=== PATIENT | male | born 1945 | race Caucasian/White ===

== ENCOUNTER 2019-06-23 08:59 | Day surgery (SDC) | payer MEDICARE, OTHER ==
[2019-06-19 16:48] VITALS: BMI 30.2
[2019-06-23 09:53] LABS: #Basophils 0.1 thou/uL (0.0-0.2); #Eosinphils 0.4 thou/uL (0.0-0.7); #Monocytes 1.1 thou/uL (0.11-0.59); #Neutrophils 7.1 thou/uL (1.40-6.50); %Basophils 0.7 % (0.0-1.0); %Eosinophils 3.7 % (0.0-10.0); %Monocytes 10.4 % (0.0-10.0); %Neutrophils 66.3 % (42.0-75.0); Hemoglobin 13.9 g/dL (14.0-18.0); Mean Corpuscular HGB CONC 32.8 g/dL (32.0-36.0); Mean Corpuscular Hemoglobin 30.6 pg (27.0-31.0); Mean Corpuscular Volume 93.1 fL (78.0-98.0); Mean Platelet Volume 7.3 fL (7.4-10.4); Platelet Count 318 thou/uL (130-400); RBC Distribution Width 12.1 % (11.5-14.5); Red Blood Cell (RBC) Count 4.54 mill/uL (4.70-6.10); White Blood Cell (WBC) Count 10.7 thou/uL (4.8-10.8)
[2019-06-23] MEDS ORDERED: Levofloxacin 500 mg/D5W 100 ml Premix Bag ONE (10:10)
[2019-06-23 10:16] LABS: ALT (SGPT) 12 U/L (8-55); AST (SGOT) 14 U/L (5-34); Albumin 4.1 g/dL (3.4-4.8); Alkaline Phosphatase 88 U/L (40-110); Anion Gap 9 mmol/L (10-20); BUN (Urea Nitrogen) 26 mg/dL (8.4-25.7); Bilirubin, Total 0.9 mg/dL (0.2-1.2); Calc. Creatinine Clearance 45 mL/min (70-130); Calcium 9.9 mg/dL (7.8-10.44); Carbon Dioxide 28 mmol/L (23-31); Chloride 106 mmol/L (98-107); Estimated GFR-MDRD 33; Glucose 147 mg/dL (83-110); Potassium 4.3 mmol/L (3.5-5.1); Protein, Total 7.1 g/dL (5.8-8.1); Sodium 139 mmol/L (136-145)
[2019-06-23] MEDS ORDERED: Bupivacaine HCl 0.5%/Epinephrine 1:200,000/PF 30 ml Vial ONE (10:32)
[2019-06-23] MEDS ORDERED: Fentanyl 100 MCG/2 ML VIAL ONE (10:43)
[2019-06-23] MEDS ORDERED: PROPOFOL 200 MG/20 ML VIAL ONE (11:40)
[2019-06-23] MEDS ORDERED: Ondansetron PF 4 MG/2 ML Vial ONE (11:40)
[2019-06-23] MEDS ORDERED: Dexamethasone 20 MG/5 ML VIAL ONE (11:40)
[2019-06-23] MEDS ORDERED: Succinylcholine Chloride 20 MG/ML 10 ml SYRINGE FS ONE (11:40)
[2019-06-23] MEDS ORDERED: Lidocaine 1% PF 5 ML VIAL ONE (11:40)
--- NOTE | 2019-06-23 14:03 | OP ---
DATE OF PROCEDURE: 06/23/2019 PREOPERATIVE DIAGNOSIS: Umbilical hernia. PROCEDURE PERFORMED: Incarcerated umbilical hernia repair with mesh. INDICATIONS: This is a 74-year-old male, who has had a painful enlarging umbilical hernia that seems to be getting worse. FINDINGS: It was incarcerated. There was quite a bit of inflammation as well as some kind of serosanguineous fluid within the sac. There was some incarcerated fat and a small knuckle of small bowel. This was able to be released and was all viable. The defect was 1.5 cm. DESCRIPTION OF PROCEDURE: After informed consent was obtained, the patient was taken to the operating room, given general endotracheal anesthesia and placed in supine position. Abdomen was prepped and draped in usual fashion. Local anesthesia infiltrated subcutaneously and deep and a subumbilical incision was performed. Subcutaneous divided sharply. The hernia sac was encountered, this was dissected from overlying umbilical skin and circumferentially. It had a serosanguineous fluid in it and it was quite a bit inflamed. The hernia sac was opened releasing the fluid and there was some ischemic omentum and a tiny piece of small bowel. I released the fascia so that I could reduce this. Everything was viable. I then removed the hernia sac. Then, a 6.4 cm PROCEED mesh was hydrated, rolled, and inserted intra-abdominally and then unrolled. The tabs were sutured to the abdominal wall with interrupted 0 Ethibond suture and the mesh further secured superior and inferior with 0 Ethibond suture. Hemostasis achieved with electrocautery. The skin was reapproximated to the fascia with interrupted 3-0 Vicryl to restore umbilical contour and the skin closed with interrupted 4-0 Rapide. Steri-Strips applied, sterile bandage applied. The patient tolerated the procedure well and transferred to Recovery in good condition. Sponge and needle count verified correct x2. Job ID: [id number]
--- NOTE | 2019-06-26 11:31 | EKG ---
Test Reason : PREOP Blood Pressure : / mmHG Vent. Rate : 054 BPM Atrial Rate : 054 BPM P-R Int : 176 ms QRS Dur : 096 ms QT Int : 394 ms P-R-T Axes : 021 016 028 degrees QTc Int : 373 ms Sinus bradycardia Otherwise normal ECG Confirmed by KASSI MARRUFO ([id number]) on 06/26/2019 11:30:45 AM Referred By: IMELDA Confirmed By:KASSI MARRUFO
== END 2019-06-23 13:34 | disposition home or self-care (01) ==
LOC: SDC 08:59
PROVIDERS: ATTEND Surgery
PROC: 0WUF0JZ Supplement Abdominal Wall with Synthetic Substitute, Open Approach (ICD-10-PCS; principal; 2019-06-23)
DX: K42.0 Umbilical hernia with obstruction, without gangrene (principal); Z79.4 Long term (current) use of insulin; Z79.82 Long term (current) use of aspirin; Z79.899 Other long term (current) drug therapy; Z88.0 Allergy status to penicillin
CPT/HCPCS: 36415; 36416; 80053; 85025; 93005; 93010; J0670; J1956; J3010

== ENCOUNTER 2020-10-09 11:00 | Inpatient (IN) | payer MEDICARE, OTHER ==
[2020-10-10 16:09] VITALS: BMI 32.4
[2020-10-14] MEDS ORDERED: Midazolam HCl 2 mg/2 ml Vial ONE (05:46)
[2020-10-14] MEDS ORDERED: Fentanyl 100 MCG/2 ML VIAL ONE ×3 (05:46→10:13)
[2020-10-14] MEDS ORDERED: Phenylephrine 10 MG/ML VIAL ONE (05:47)
[2020-10-14] MEDS ORDERED: Ropivacaine 0.2% HCl/PF 20 ML ONE (05:47)
[2020-10-14] MEDS ORDERED: Lidocaine 2% Jelly 5 ML TUBE ONE (06:03)
[2020-10-14] MEDS ORDERED: Tranexamic Acid 1,000 MG/10 ML VIAL ONE (06:29)
[2020-10-14] MEDS ORDERED: Vancomycin 1.5 GRAM/300 ML BAG ONE (06:29)
[2020-10-14] MEDS ORDERED: Levofloxacin 500 mg/D5W 100 ml Premix Bag ONE (06:30)
[2020-10-14] MEDS ORDERED: Sodium Chloride 0.9% 100 ML ONE (06:30)
[2020-10-14] MEDS ORDERED: Zolpidem Tartrate 5 MG TAB PO PRN ×2 (07:09→08:00)
[2020-10-14] MEDS ORDERED: Acetaminophen 325 MG TAB PO PRN (07:09)
[2020-10-14] MEDS ORDERED: diphenhydrAMINE 25 MG CAP PO PRN (07:09)
[2020-10-14] MEDS ORDERED: HYDROcodone/Acetaminophen 10/325 mg Tablet PO PRN (07:09)
[2020-10-14] MEDS ORDERED: Ondansetron PF 4 MG/2 ML Vial IVP PRN ×2 (07:09→08:00)
[2020-10-14] MEDS ORDERED: Promethazine HCl 25 MG/ML VIAL IM PRN ×4 (07:09→09:06)
[2020-10-14] MEDS ORDERED: Fentanyl 100 MCG/2 ML VIAL SLOW IVP PRN ×2 (07:09)
[2020-10-14] MEDS ORDERED: traMADol HCl 50 MG TAB PO PRN ×3 (07:09→08:00)
[2020-10-14] MEDS ORDERED: Non-Formulary Item 1 EACH (Insulin Aspart Prot/Insuln Asp [Novolog Mix 70-30 Flexpen Syrn SQ SCH (07:15)
[2020-10-14] MEDS ORDERED: HumuLIN 70/30 (300 UNITS/3 ML VIAL) SC SCH (07:30)
[2020-10-14] MEDS ORDERED: Acetaminophen 500 MG TAB PO PRN (07:54)
[2020-10-14] MEDS ORDERED: Bupivacaine 0.25% 10 ML VIAL EPIDURAL PRN (08:00)
[2020-10-14] MEDS ORDERED: Ketorolac Tromethamine 30 MG/ML VIAL IVP PRN (08:00)
[2020-10-14] MEDS ORDERED: diphenhydrAMINE 50 MG/ML VIAL IM PRN (08:00)
[2020-10-14] MEDS ORDERED: diphenhydrAMINE 50 MG/ML VIAL IVP PRN (08:00)
[2020-10-14] MEDS ORDERED: HYDROcodone/Acetaminophen 5/325 mg Tablet PO PRN ×2 (08:00)
[2020-10-14] MEDS ORDERED: Hydrocerin (Eucerin) Cream 120 gm Jar TOP PRN (08:00)
[2020-10-14] MEDS ORDERED: Naloxone HCl 0.4 mg/ml Vial IV PRN (08:00)
[2020-10-14] MEDS ORDERED: Promethazine HCl 25 MG SUPP PR PRN (08:00)
[2020-10-14] MEDS ORDERED: Naloxone HCl 0.4 mg/ml Vial IVP PRN (08:00)
[2020-10-14] MEDS ORDERED: INSULIN DEGLUDEC SQ SCH (09:00)
[2020-10-14] MEDS ORDERED: [UNRECOGNIZED DRUG - OTHER] SQ SCH (09:00)
[2020-10-14] MEDS ORDERED: Aspirin 325 MG TAB PO SCH (09:00)
[2020-10-14] MEDS ORDERED: Aspirin 81 mg Enteric Coated Tablet PO SCH (09:00)
[2020-10-14] MEDS ORDERED: Insulin Glargine 80 UNITS in Pre-Filled Syringe 1 EACH SC SCH ×2 (09:00→15:30)
[2020-10-14] MEDS ORDERED: Alogliptin 25 MG TAB PO SCH (09:00)
[2020-10-14] MEDS ORDERED: Ondansetron HCl/PF 4 MG/2 ML Vial IVP PRN ×2 (09:06)
[2020-10-14] MEDS ORDERED: Promethazine HCl 25 MG/ML VIAL SLOW IVP PRN ×2 (09:06)
[2020-10-14] MEDS ORDERED: Bupivacaine 0.5% 10 ML VIAL ONE (09:29)
--- NOTE | 2020-10-14 09:36 | OP ---
DATE OF PROCEDURE: 10/14/2020 TITLE OF PROCEDURE: Right total hip arthroplasty using Pingree Accolade II stem size 6 with -2.5, 36 ceramic head Trident II cup with a 54 size with X3 36, 10-degree hooded liner. C SOFTWARE ENGINEER: Aziza. BLOOD LOSS: 200. SPECIMENS: None. DRAINS: None. COMPLICATIONS: None. The gift shop assistant/co-surgeon was present through the entire procedure and was responsible for providing exposure, tissue retraction and any necessary limb or tissue manipulation required to obtain necessary reduction or hardware placement. The gift shop assistant/co-surgeon also provided bleeding control, tissue closure, and suturing in conjunction with the primary surgeon. DESCRIPTION OF PROCEDURE: After informed consent was obtained in the preoperative holding area, the patient was taken to the operative suite where general anesthesia was induced. The patient was then positioned in the lateral decubitus position. The hip was then prepped and draped in usual sterile fashion. The patient received preoperative antibiotics. Prior to incision, time-out was called and all members of the surgical team agreed upon site, surgeon, and patient. After this, a longitudinal incision was made directly over the trochanter, noted by palpation extending 2 fingerbreadths above and below the trochanter. The deeper subcutaneous layer was undermined with Bovie electrocautery. The iliotibial band was encountered and incised sharply and the plane below this was developed bluntly. A Charnley retractor was placed to hold this opened. The lateral aspect of the trochanter and the abductor muscles were encountered and then reflected anteriorly off the trochanter using Bovie electrocautery. Once this was completed, the anterior capsule was then encountered and identified and copious capsulotomy was carried out, exposing the femoral neck and head. Dislocation maneuver was then performed and an in situ provisional neck cut was then made using the oscillating saw. Attention was then turned to acetabular preparation and sequential reaming was carried out up to the appropriate diameter. A trial was then malleted into place with good firm resistance and no pullout. The permanent acetabular shell was then malleted squarely into place, as was the appropriate liner. Once completed, the wound was copiously irrigated and attention was then turned to femoral preparation. Flexion and external rotation were performed of the exposed thigh and femoral elevators were then placed at the proximal aspect of the wound. Canal finder was used to establish the length of the canal and sequential reaming was carried out, followed by broaching. Once the appropriate stability was established with the trial broaches with flexion, extension and rotational stability, we did trial with neutral and 2 mm offset incremental necks. Once the appropriate size was decided upon, with good stability noted with flexion, extension, internal and external rotation and shuck being negative, we removed the femoral trial broach and malletted into place the permanent prosthesis with good firm fit, which was also stable to rotation. Again, the hip felt very stable to flexion, extension, internal and external rotation. Leg lengths appeared near anatomic clinically and we were quite happy with prosthesis placement. Copious irrigation was then carried out through the entirety of the wound. Primary closure of the abductors was accomplished with interrupted #2 Vicryl [id number] stitches and the IT band was then closed with interrupted #2 Vicryl, oversewn with a #2 running barbed Quill stitch. Subcutaneous fascia was closed with running barbed Quill stitch and a subcuticular Monocryl barbed Quill stitch was used for skin closure and augmented with skin cement. A sterile dressing was applied. The procedure was terminated without any complication. All counts were correct. The patient was awakened in the operative suite and taken to the recovery room in stable condition. Job ID: [id number]
--- NOTE | 2020-10-14 09:52 | RAD ---
EXAM: 2 views of the right hip HISTORY: Right hip arthroplasty COMPARISON: 02/21/2020 FINDINGS: 2 views of the right hip shows the patient is status post right hip arthroplasty without pe rihardware lucency or fracture. Air in the soft tissues is from recent surgery. IMPRESSION: Status post right hip arthroplasty without evidence of complication.
[2020-10-14] MEDS ORDERED: Dexamethasone 20 MG/5 ML VIAL ONE (10:38)
[2020-10-14] MEDS ORDERED: PROPOFOL 200 MG/20 ML VIAL ONE (10:38)
[2020-10-14] MEDS ORDERED: Ondansetron PF 4 MG/2 ML Vial ONE (10:38)
[2020-10-14] MEDS ORDERED: Rocuronium Bromide 10 MG/ML (10ML VIAL) ONE (10:38)
[2020-10-14] MEDS ORDERED: Glycopyrrolate 0.2 MG/ML 5 ML SYRINGE ONE (10:38)
[2020-10-14] MEDS ORDERED: Lidocaine 1.5% w/Epi 1:200K 30 ML VIAL (Epid Use) ONE (10:38)
[2020-10-14] MEDS ORDERED: Dextrose 50% Abboject 50 ML SYRINGE SLOW IVP PRN (13:33)
[2020-10-14] MEDS ORDERED: Insulin Regular 300 UNITS/3 ML VIAL SC PRN ×2 (13:33)
[2020-10-14] MEDS ORDERED: Dextrose 5% in Water 1,000 ML IV PRN (13:33)
[2020-10-14] MEDS: Ferrous Gluconate 324 MG TAB PO SCH ×2 (13:35→21:07)
[2020-10-14] MEDS: Sodium Chloride 0.9% 1,000 ML IV SCH ×2 (13:35→19:00)
[2020-10-14] MEDS: Senokot S 8.6-50 MG TAB PO SCH ×2 (13:36→21:08)
[2020-10-14] MEDS: Multivitamin W/ Minerals 1 TAB PO SCH (13:36)
[2020-10-14] MEDS: Amlodipine 5 MG TAB PO SCH (15:09)
[2020-10-14] MEDS: Icosapent Ethyl 1 GM CAPSULE PO SCH ×2 (15:14→21:09)
[2020-10-14 15:18] LABS: Mean Corpuscular HGB CONC 32.6 g/dL (32.0-36.0); Mean Corpuscular Hemoglobin 30.8 pg (27.0-31.0); Mean Corpuscular Volume 94.4 fL (78.0-98.0); Mean Platelet Volume 7.1 fL (7.4-10.4); Platelet Count 322 thou/uL (130-400); RBC Distribution Width 12.3 % (11.5-14.5); Red Blood Cell (RBC) Count 3.91 mill/uL (4.70-6.10); White Blood Cell (WBC) Count 21.9 thou/uL (4.8-10.8)
[2020-10-14 15:32] LABS: Band 4 % (5-11); Lymphocytes 2 % (21-51); MDiff Complete? YES; Monocytes 1 % (0-10); Neutrophil 93 % (42-75); Ovalocytes SLIGHT = 2-5 cells (100X) (0-1/hpf); Platelet Morphology Comment Appears Adequate; Polychromasia SLIGHT = 2-3 cells (100X) (0-2/hpf)
[2020-10-14 15:49] LABS: ALT (SGPT) 17 U/L (8-55); AST (SGOT) 20 U/L (5-34); Albumin 3.4 g/dL (3.4-4.8); Alkaline Phosphatase 76 U/L (40-110); Anion Gap 14 mmol/L (10-20); BUN (Urea Nitrogen) 33 mg/dL (8.4-25.7); Bilirubin, Total 0.6 mg/dL (0.2-1.2); Calc. Creatinine Clearance 45 mL/min (70-130); Calcium 8.5 mg/dL (7.8-10.44); Carbon Dioxide 21 mmol/L (23-31); Chloride 103 mmol/L (98-107); Globulin 2.7 g/dL (2.4-3.5); Glucose 379 mg/dL (83-110); Magnesium 1.5 mg/dL (1.6-2.6); Potassium 4.9 mmol/L (3.5-5.1); Protein, Total 6.1 g/dL (5.8-8.1); Sodium 133 mmol/L (136-145)
[2020-10-14] MEDS ORDERED: Magnesium Sulfate 4 GM in Sodium Chloride 0.9% 250 ML 250 ML IVPB SCH (17:45)
[2020-10-14] MEDS ORDERED: Vancomycin HCl 1.5 GM in Sodium Chloride 0.9% 250 ML 300 ML IVPB SCH (18:00)
--- NOTE | 2020-10-14 18:37 | CON ---
DATE OF CONSULTATION: 10/14/2020 REASON FOR CONSULTATION: Medical management. PRIMARY CARE PHYSICIAN: Dr. Mason. HISTORY OF PRESENT ILLNESS: Mr. Ojeda is a 75-year-old gentleman, who is status post a right total hip arthroplasty done by Dr. Leon earlier today, who has been referred to us for medical management. The patient has a history of diabetes, hypertension, and hyperlipidemia. The patient apparently had an injury five years ago to the right hip and has had injections for chronic pain. Today, he has undergone a right total hip arthroplasty. He states the pain is under control and denies any complaints at this present time. 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 He has a Dexcom, which he checks hourly, and administers Humulin according to the readings. He states his blood pressure is usually under good control. He has no complaints at this present time. He does mention he has had occasional itching associated with epidural but has not experienced any rash, throat swelling, tongue swelling or difficulty with his breathing. Of note, the patient states that he was told he had chronic kidney disease and states he has had improvement in his renal function, but was lost to follow up. Recently had been set up to see Dr. Guajardo as an outpatient; however, due to COVID, his appointment was canceled and no further followup was established. PAST MEDICAL HISTORY: 1. Diabetes mellitus. 2. Hypertension. 3. Hyperlipidemia. 4. Obese. PAST SURGICAL HISTORY: 1. Left knee arthroscopic meniscectomy, August 2016. 2. Right knee arthroscopy in 2012. 3. Umbilical hernia repair in June 2019. 4. Total right hip arthroplasty. FAMILY HISTORY: His father is and was diagnosed with diabetes. His mother is and was diagnosed with CVA, diabetes and hypertension. SOCIAL HISTORY: The patient lives with his . Denies any alcohol consumption, tobacco use, or drug use. ALLERGIES: PENICILLIN. CURRENT MEDICATIONS: 1. Amlodipine 5 mg p.o. daily. 2. Aspirin 325 mg p.o. daily. 3. Ezetimibe/simvastatin. 4. Vascepa 2 g p.o. b.i.d. 5. NovoLog 10 units subcutaneous. 6. Tresiba 80 units subcutaneous every morning. 7. Linagliptin 5 mg p.o. daily. 8. Hyzaar 50 mg/12.5 mg, one tablet at bedtime. PHYSICAL EXAMINATION: GENERAL: The patient appears well developed, well nourished, is in no acute distress. VITAL SIGNS: Temp 98, pulse 88, respirations 18, O2 saturation 100% on room air, blood pressure 120/67. HEENT: Normocephalic and atraumatic. Pupils are equal, round, reactive to light. Sclerae without icterus. Oropharynx is clear. NECK: Supple. LUNGS: Clear to auscultation bilaterally without any wheezes, rales, or rhonchi. CARDIAC: Regular rate and rhythm. ABDOMEN: Soft, obese, nontender, nondistended. Normoactive bowel sounds present. No guarding or rigidity. No renal angle tenderness. EXTREMITIES: Mild pedal edema. Peripheral pulses strong and equal bilaterally. SKIN: Warm and dry. IMAGING DATA: A hip x-ray done on 10/14/2020 showed status post right hip arthroplasty without evidence of complication. LABORATORY STUDIES: Preop done to 10/11/2020 showed a white count of 10.5, hemoglobin of 13.8, hematocrit 42.4, platelets 372. Potassium 4.5, BUN 27, creatinine 1.96, GFR 34, glucose 112, calcium 9.7. Urinalysis done on 10/11/2020 was unremarkable. COVID testing done at that time was negative as well. IMPRESSION AND PLAN: Mr. Ojeda is a 75-year-old gentleman, who is status post a right total hip arthroplasty, who is being referred for medical management of the followin. Diabetes mellitus. We will discontinue linagliptin in light of chronic kidney disease and continue to manage with insulin only. Insulin sliding scale initiated. Continue to monitor blood glucose, Accu-Cheks a.c. and at bedtime. 2. Hypertension. Home medications have been restarted. We will hold hydrochlorothiazide in light of renal function, though we do plan to repeat renal function studies today. We will start p.r.n. antihypertensives if needed; however, blood pressure is soft in the 120s at present. 3. Chronic kidney disease. As mentioned above, we will obtain repeat laboratory studies including renal function. His creatinine with preoperative labs was elevated at 1.96. Consider Nephrology consult if renal function is worse. 4. Hyperlipidemia. Statin restarted. 5. Status post right total hip arthroplasty. Pain under control. Further management as per surgical team. 6. Gastrointestinal prophylaxis with famotidine. 7. Deep venous thrombosis prophylaxis with mechanical SCDs. 8. Code status full. Case discussed with attending who agrees with plan of care as described above. Job ID: [id number]
[2020-10-14] MEDS ORDERED: HumaLOG 300 UNITS/3 ML VIAL SC PRN ×3 (20:30→20:45)
[2020-10-14] MEDS ORDERED: SIMVASTATIN PO SCH (21:00)
[2020-10-14] MEDS ORDERED: EZETIMIBE PO SCH (21:00)
[2020-10-14] MEDS ORDERED: [UNRECOGNIZED DRUG - OTHER] PO SCH (21:00)
[2020-10-14] MEDS: Ezetimibe 10 MG TAB PO SCH (21:07)
[2020-10-14] MEDS: Aspirin 325 MG TAB PO SCH (21:07)
[2020-10-14] MEDS: Simvastatin 20 MG TAB PO SCH (21:08)
[2020-10-15] MEDS: diphenhydrAMINE 25 MG CAP PO PRN ×4 (00:18→18:57)
[2020-10-15] MEDS: Fentanyl 5 mcg/Bup 0.075% Cadd 100 ML EPIDURAL SCH ×2 (01:24→18:58)
[2020-10-15] MEDS: Sodium Chloride 0.9% 1,000 ML IV SCH ×2 (05:06→14:57)
[2020-10-15] MEDS: Vancomycin 1.5 GRAM/300 ML BAG 1.5 GM in Premix Bag 1 BAG IVPB SCH (05:51)
[2020-10-15 06:18] LABS: #Basophils 0.1 thou/uL (0.0-0.2); #Lymphocytes 1.7 thou/uL (1.20-3.40); #Monocytes 2.1 thou/uL (0.11-0.59); %Basophils 0.3 % (0.0-1.0); %Eosinophils 0.1 % (0.0-10.0); %Lymphocytes 10.1 % (21.0-51.0); %Monocytes 12.3 % (0.0-10.0); %Neutrophils 77.3 % (42.0-75.0); Hemoglobin 10.9 g/dL (14.0-18.0); Mean Corpuscular HGB CONC 33.2 g/dL (32.0-36.0); Mean Corpuscular Hemoglobin 31.1 pg (27.0-31.0); Mean Corpuscular Volume 93.6 fL (78.0-98.0); Platelet Count 274 thou/uL (130-400); RBC Distribution Width 12.2 % (11.5-14.5); Red Blood Cell (RBC) Count 3.52 mill/uL (4.70-6.10); White Blood Cell (WBC) Count 16.8 thou/uL (4.8-10.8)
[2020-10-15 06:33] LABS: Anion Gap 11 mmol/L (10-20); BUN (Urea Nitrogen) 36 mg/dL (8.4-25.7); Calc. Creatinine Clearance 48 mL/min (70-130); Calcium 8.7 mg/dL (7.8-10.44); Carbon Dioxide 22 mmol/L (23-31); Chloride 106 mmol/L (98-107); Glucose 256 mg/dL (83-110); Potassium 4.6 mmol/L (3.5-5.1); Sodium 134 mmol/L (136-145)
[2020-10-15] MEDS: Amlodipine 5 MG TAB PO SCH (08:48)
[2020-10-15] MEDS: Tamsulosin HCl 0.4 MG CAP PO SCH (08:49)
[2020-10-15] MEDS: Multivitamin W/ Minerals 1 TAB PO SCH (08:49)
[2020-10-15] MEDS: Senokot S 8.6-50 MG TAB PO SCH ×3 (08:49→20:48)
[2020-10-15] MEDS: Ferrous Gluconate 324 MG TAB PO SCH ×2 (08:49→20:49)
[2020-10-15] MEDS ORDERED: Magnesium 2 GM/50 ML 2 GM in Premix Bag 1 BAG IVPB SCH ×2 (09:00→13:45)
[2020-10-15] MEDS: Icosapent Ethyl 1 GM CAPSULE PO SCH ×2 (10:00→20:49)
[2020-10-15] MEDS: Insulin Glargine 45 UNITS in Pre-Filled Syringe 1 EACH SC SCH ×2 (10:02→20:58)
[2020-10-15] MEDS: NPH, Human Insulin Isophane 300 UNIT/3 ML VIAL SC SCH ×2 (10:47→17:57)
--- NOTE | 2020-10-15 14:25 | PDOC.HOSPP ---
- Subjective Encounter Date: 10/15/20 Encounter Time: 09:45 Subjective: Patient seen in his room. He is sitting in the chair. at bedside. He walked with physical therapy. No acute complaints. White count is trending down blood glucose still high. - Objective Vital Signs & Weight: Vital Signs (12 hours) Temp Pulse Resp BP BP Pulse Ox 10/15/20 10:33 98.2 F 103 H 14 116/61 93 L 10/15/20 08:48 81 129/66 10/15/20 07:55 97.8 F 81 16 129/66 94 L 10/15/20 03:30 97.8 F 82 18 122/73 96 Weight Weight 226 lb I&O: 10/14/20 10/15/20 10/16/20 06:59 06:59 06:59 Intake Total 1670 1280 Output Total 550 2050 Balance 1120 -770 Result Diagrams: 10/15/20 05:25 10/15/20 05:25 Additional Labs: Accuchecks 10/15/20 10/15/20 10/14/20 05:50 00:14 20:55 POC Glucose 238 H 336 H 429 H 10/14/20 10/14/20 17:36 15:48 POC Glucose 415 H 426 H Hospitalist ROS - Medication Medications: Active Medications Generic Name Dose Route Start Last Admin Trade Name Freq PRN Reason Stop Dose Admin Amlodipine Besylate 5 mg 10/14/20 09:00 10/15/20 08:48 Amlodipine 5 Mg Tab PO 5 mg QAM ANA LUISA Administration Aspirin 325 mg 10/14/20 21:00 10/14/20 21:07 Aspirin 325 Mg Tab PO 325 mg HS ANA LUISA Administration Diphenhydramine HCl 25 mg 10/14/20 08:00 10/15/20 08:40 Diphenhydramine 25 Mg Cap PO 25 mg Q3H PRN Administration Itching Ezetimibe 10 mg 10/14/20 21:00 10/14/20 21:07 Ezetimibe 10 Mg Tab PO 10 mg HS ANA LUISA Administration Ferrous Gluconate 324 mg 10/14/20 09:00 10/15/20 08:49 Ferrous Gluconate 324 Mg Tab PO 324 mg BID ANA LUISA Administration Sodium Chloride 1,000 mls @ 100 mls/hr 10/14/20 07:15 10/15/20 05:06 Normal Saline 0.9% IV Not Given .Q10H ANA LUISA Fentanyl Citrate 100 mls @ 6 mls/hr 10/14/20 08:00 10/15/20 01:24 Fentanyl/Bupivacaine EPIDURAL 100 mls INF ANA LUISA Administration As Directed Vancomycin HCl 1.5 gm/ Device 300 mls @ 200 mls/hr 10/15/20 06:00 10/15/20 05:51 IVPB 300 mls 0600 ANA LUISA Administration Insulin Glargine 45 units/ 0.45 mls @ 0 mls/hr 10/15/20 09:00 10/15/20 10:02 Miscellaneous Medication SC Not Given BID ANA LUISA Insulin Human Lispro 0 units 10/14/20 20:45 10/14/20 20:57 Humalog 300 Units/3 Ml Vial SC 13 units .AGGRESSIVE SLIDING PRN Administration AGGRESSIVE SLIDING SCALE Protocol Insulin Human NPH 7 unit 10/15/20 11:30 10/15/20 10:47 Nph, Human Insulin Isophane 300 Unit/3 Ml Vial SC Not Given AC ANA LUISA Iron/Minerals/Multivitamins 1 tab 10/14/20 09:00 10/15/20 08:49 Multivitamin W/ Minerals 1 Tab PO 1 tab DAILY ANA LUISA Administration Miscellaneous Medication 2 gm 10/14/20 09:00 10/15/20 10:00 Icosapent Ethyl 1 Gm Capsule PO 2 gm BID ANA LUISA Administration Senna/Docusate Sodium 2 tab 10/14/20 09:00 10/15/20 08:59 Senokot S 8.6-50 Mg Tab PO Not Given BID ANA LUISA Simvastatin 20 mg 10/14/20 21:00 10/14/20 21:08 Simvastatin 20 Mg Tab PO 20 mg HS ANA LUISA Administration Tamsulosin HCl 0.4 mg 10/15/20 09:00 10/15/20 08:49 Tamsulosin Hcl 0.4 Mg Cap PO 0.4 mg DAILY ANA LUISA Administration Hospitalist Exam Vitals: Vital Signs (12 hours) Temp Pulse Resp BP BP Pulse Ox 10/15/20 10:33 98.2 F 103 H 14 116/61 93 L 10/15/20 08:48 81 129/66 10/15/20 07:55 97.8 F 81 16 129/66 94 L 10/15/20 03:30 97.8 F 82 18 122/73 96 Weight Weight 226 lb General Appearance: NAD, awake alert Eye: PERRL ENT: normocephalic atraumatic Neck: supple Heart: RRR, normal peripheral pulses Respiratory: CTAB, normal chest expansion Gastrointestinal: soft, normal bowel sounds Extremities - other findings: Right total hip arthroplasty Musculoskeletal: generalized weakness Psychiatric: normal affect, normal behavior, A&O x 3 Hosp A/P - Plan Status post total hip arthroplasty Type 2 diabetes mellitus-likely uncontrolled at baseline -Follow-up on A1c on Lantus 80 units for easy titration and managing the blood glucose which is very high will split it twice a day dose and adding aggressive sliding scale in addition to scheduled premeal insulin. Blood glucose reached around 300-400 range. -Need another day or 2 to optimize his insulin management Chronic kidney disease stage III -Slowly improving Bowel regimen Ambulation with physical therapy Disposition Per Ortho
[2020-10-15] MEDS: Aspirin 325 MG TAB PO SCH (20:49)
[2020-10-15] MEDS: Ezetimibe 10 MG TAB PO SCH (20:49)
[2020-10-15] MEDS: Simvastatin 20 MG TAB PO SCH (20:49)
[2020-10-16] MEDS: Sodium Chloride 0.9% 1,000 ML IV SCH ×2 (01:17→09:31)
[2020-10-16] MEDS: NPH, Human Insulin Isophane 300 UNIT/3 ML VIAL SC SCH ×2 (06:27→10:43)
[2020-10-16 06:49] LABS: Hemoglobin A1c 7.2 % (4.0-6.0)
[2020-10-16 06:53] LABS: #Basophils 0.1 thou/uL (0.0-0.2); #Eosinphils 0.3 thou/uL (0.0-0.7); #Lymphocytes 1.6 thou/uL (1.20-3.40); #Monocytes 1.8 thou/uL (0.11-0.59); #Neutrophils 10.5 thou/uL (1.40-6.50); %Basophils 0.4 % (0.0-1.0); %Lymphocytes 11.1 % (21.0-51.0); %Monocytes 12.5 % (0.0-10.0); %Neutrophils 74.1 % (42.0-75.0); Hemoglobin 10.5 g/dL (14.0-18.0); Mean Corpuscular HGB CONC 33.3 g/dL (32.0-36.0); Mean Corpuscular Hemoglobin 31.4 pg (27.0-31.0); Mean Corpuscular Volume 94.4 fL (78.0-98.0); Mean Platelet Volume 7.2 fL (7.4-10.4); Platelet Count 252 thou/uL (130-400); RBC Distribution Width 12.2 % (11.5-14.5); Red Blood Cell (RBC) Count 3.33 mill/uL (4.70-6.10); White Blood Cell (WBC) Count 14.2 thou/uL (4.8-10.8)
[2020-10-16 07:03] LABS: Vancomycin, Trough 10.4 ug/mL
[2020-10-16 07:05] LABS: Anion Gap 10 mmol/L (10-20); BUN (Urea Nitrogen) 34 mg/dL (8.4-25.7); Calc. Creatinine Clearance 48 mL/min (70-130); Calcium 9.2 mg/dL (7.8-10.44); Carbon Dioxide 23 mmol/L (23-31); Chloride 107 mmol/L (98-107); Glucose 157 mg/dL (83-110); Potassium 4.2 mmol/L (3.5-5.1); Sodium 136 mmol/L (136-145)
[2020-10-16] MEDS: Vancomycin 1.5 GRAM/300 ML BAG 1.5 GM in Premix Bag 1 BAG IVPB SCH (07:25)
[2020-10-16] MEDS ORDERED: VANCOMYCIN 1.75 GM/350 ML BAG 1.75 GM in Premix Bag 1 BAG IVPB SCH (08:00)
[2020-10-16] MEDS: Ferrous Gluconate 324 MG TAB PO SCH (08:30)
[2020-10-16] MEDS: Amlodipine 5 MG TAB PO SCH (08:30)
[2020-10-16] MEDS: Senokot S 8.6-50 MG TAB PO SCH (08:30)
[2020-10-16] MEDS: Tamsulosin HCl 0.4 MG CAP PO SCH (08:30)
[2020-10-16] MEDS: Multivitamin W/ Minerals 1 TAB PO SCH (08:30)
[2020-10-16] MEDS: Icosapent Ethyl 1 GM CAPSULE PO SCH (08:31)
[2020-10-16] MEDS: Insulin Glargine 45 UNITS in Pre-Filled Syringe 1 EACH SC SCH (08:43)
[2020-10-16] MEDS ORDERED: HYDROcodone/Acetaminophen 10/325 mg Tablet PO PRN ×2 (09:44)
[2020-10-16] MEDS: diphenhydrAMINE 25 MG CAP PO PRN (10:41)
[2020-10-16 12:06] VITALS: BP 132/70; TEMP 99.5
--- NOTE | 2020-10-16 12:53 | PDOC.HOSPP ---
- Subjective Encounter Date: 10/16/20 Encounter Time: 10:20 Subjective: Patient is doing well he is able to participate with physical therapy. He has no complaints. His white count is trending down. He is normotensive. - Objective Vital Signs & Weight: Vital Signs (12 hours) Temp Pulse Resp BP BP Pulse Ox 10/16/20 12:05 99.5 F 111 H 14 132/70 92 L 10/16/20 08:31 97 10/16/20 08:30 93 134/67 10/16/20 08:27 99 F 93 14 134/67 97 10/16/20 04:55 98.9 F 91 16 138/74 96 Weight Weight 226 lb I&O: 10/15/20 10/16/20 10/17/20 06:59 06:59 06:59 Intake Total 1670 3620 Output Total 550 4100 200 Balance 1120 -480 -200 Result Diagrams: 10/16/20 06:08 10/16/20 06:08 Additional Labs: Accuchecks 10/15/20 20:26 POC Glucose 219 H Hospitalist ROS - Medication Medications: Active Medications Generic Name Dose Route Start Last Admin Trade Name Freq PRN Reason Stop Dose Admin Hydrocodone Bitart/Acetaminophen 1 tab 10/16/20 09:44 10/16/20 10:41 Hydrocodone/Acetaminophen 10/325 Mg Tablet PO 1 tab Q4H PRN Administration Pain 2-4 Amlodipine Besylate 5 mg 10/14/20 09:00 10/16/20 08:30 Amlodipine 5 Mg Tab PO 5 mg QAM ANA LUISA Administration Aspirin 325 mg 10/14/20 21:00 10/15/20 20:49 Aspirin 325 Mg Tab PO 325 mg HS ANA LUISA Administration Diphenhydramine HCl 25 mg 10/14/20 08:00 10/16/20 10:41 Diphenhydramine 25 Mg Cap PO 25 mg Q3H PRN Administration Itching Ezetimibe 10 mg 10/14/20 21:00 10/15/20 20:49 Ezetimibe 10 Mg Tab PO 10 mg HS ANA LUISA Administration Ferrous Gluconate 324 mg 10/14/20 09:00 10/16/20 08:30 Ferrous Gluconate 324 Mg Tab PO 324 mg BID ANA LUISA Administration Sodium Chloride 1,000 mls @ 100 mls/hr 10/14/20 07:15 10/16/20 09:31 Normal Saline 0.9% IV Not Given .Q10H ANA LUISA Insulin Glargine 45 units/ 0.45 mls @ 0 mls/hr 10/15/20 09:00 10/16/20 08:43 Miscellaneous Medication SC Not Given BID ANA LUISA Vancomycin HCl 1.75 gm/ Device 350 mls @ 175 mls/hr 10/16/20 08:00 10/16/20 08:29 IVPB 350 mls 0800 ANA LUISA Administration Insulin Human Lispro 0 units 10/14/20 20:45 10/14/20 20:57 Humalog 300 Units/3 Ml Vial SC 13 units .AGGRESSIVE SLIDING PRN Administration AGGRESSIVE SLIDING SCALE Protocol Insulin Human NPH 7 unit 10/15/20 11:30 10/16/20 10:43 Nph, Human Insulin Isophane 300 Unit/3 Ml Vial SC Not Given AC ANA LUISA Iron/Minerals/Multivitamins 1 tab 10/14/20 09:00 10/16/20 08:30 Multivitamin W/ Minerals 1 Tab PO 1 tab DAILY ANA LUISA Administration Miscellaneous Medication 2 gm 10/14/20 09:00 10/16/20 08:31 Icosapent Ethyl 1 Gm Capsule PO 2 gm BID ANA LUISA Administration Senna/Docusate Sodium 2 tab 10/14/20 09:00 10/16/20 08:30 Senokot S 8.6-50 Mg Tab PO 2 tab BID ANA LUISA Administration Simvastatin 20 mg 10/14/20 21:00 10/15/20 20:49 Simvastatin 20 Mg Tab PO 20 mg HS ANA LUISA Administration Tamsulosin HCl 0.4 mg 10/15/20 09:00 10/16/20 08:30 Tamsulosin Hcl 0.4 Mg Cap PO 0.4 mg DAILY ANA LUISA Administration Hospitalist Exam Vitals: Vital Signs (12 hours) Temp Pulse Resp BP BP Pulse Ox 10/16/20 12:05 99.5 F 111 H 14 132/70 92 L 10/16/20 08:31 97 10/16/20 08:30 93 134/67 10/16/20 08:27 99 F 93 14 134/67 97 10/16/20 04:55 98.9 F 91 16 138/74 96 Weight Weight 226 lb General Appearance: ill appearing Eye: PERRL, anicteric sclera ENT: normocephalic atraumatic Neck: supple Heart: RRR, normal peripheral pulses Respiratory: CTAB, normal chest expansion Gastrointestinal: soft, normal bowel sounds Neurological: cranial nerve grossly intact, no focal deficits Psychiatric: normal affect, normal behavior, A&O x 3 Hosp A/P - Plan Status post total hip arthroplasty Type 2 diabetes mellitus-likely uncontrolled at baseline -Follow-up on A1c on Lantus 80 units for easy titration and managing the blood glucose which is very high will split it twice a day dose and adding aggressive sliding scale in addition to scheduled premeal insulin. Blood glucose reached around 300-400 range. -Need another day or 2 to optimize his insulin management Chronic kidney disease stage III -Slowly improving Bowel regimen Ambulation with physical therapy Disposition Per Ortho Plan for discharge today.
--- NOTE | 2020-10-16 14:14 | PRG ---
DATE OF SERVICE: 10/15/2020 SUBJECTIVE: Sy is a 75-year-old male postop day 1 from a right total hip arthroplasty. He is doing relatively well. He has no complaints. OBJECTIVE: VITAL SIGNS: Temperature 97.8, pulse 81, respiratory rate 16 and unlabored, O2 saturation is 94% on room air, and blood pressure is 129/66. GENERAL: He is alert and oriented to person, place, time, and situation, responsive and appropriate with examiner. His incision is clean, closed. No erythema. There is no shortening or malrotation of the right lower extremity. He is neurovascularly intact. LABORATORY DATA: Hemoglobin and hematocrit are 10.9 and 32.9. IMPRESSION: A 75-year-old male postop day 1, right total hip arthroplasty, doing well. PLAN: Initiate physical therapy. Continue to monitor for pain control and also monitor for hemorrhage. Expected discharge, postop day 2. Job ID: [id number]
== END 2020-10-16 13:29 | disposition home or self-care (01) | DRG 470 ==
LOC: SJJU 10-14 05:31 → SURG A 10-14 12:05
PROVIDERS: ADMIT Orthopaedic Surgery; ATTEND Internal Medicine
PROC: 0SR9039 Replacement of Right Hip Joint with Ceramic Synthetic Substitute, Cemented, Open Approach (ICD-10-PCS; principal; 2020-10-14)
DX: M16.11 Unilateral primary osteoarthritis, right hip (principal); Z20.822 Contact with and (suspected) exposure to COVID-19; E78.5 Hyperlipidemia, unspecified; G89.29 Other chronic pain; E66.9 Obesity, unspecified; E11.22 Type 2 diabetes mellitus with diabetic chronic kidney disease; I12.9 Hypertensive chronic kidney disease with stage 1 through stage 4 chronic kidney disease, or unspecified chronic kidney disease; E11.65 Type 2 diabetes mellitus with hyperglycemia; N18.2 Chronic kidney disease, stage 2 (mild); Z68.32 Body mass index [BMI] 32.0-32.9, adult; Z88.0 Allergy status to penicillin; Z79.899 Other long term (current) drug therapy; Z79.82 Long term (current) use of aspirin; Z79.4 Long term (current) use of insulin
CPT/HCPCS: 36415; 36416; 80048; 80053; 80202; 83036; 83735; 83880; 85025; J1100; J1815; J1956; J2001; J2250; J2370; J2405; J2704; J2795; J3010; J3370; J3475; J3490; J7050; Q0163

== ENCOUNTER 2021-01-29 09:18 | Outpatient (CLI) | payer MEDICARE, OTHER | END 2021-01-29 09:19 | disposition home or self-care (01) | LOC: BICRAD 09:18 | PROVIDERS: ATTEND Internal Medicine Pulmonary Disease | DX: R06.00 Dyspnea, unspecified (principal); K44.9 Diaphragmatic hernia without obstruction or gangrene | CPT/HCPCS: 71046 ==